=== PATIENT | female | born 1945 | race Caucasian/White ===

== ENCOUNTER 2018-03-13 12:41 | Outpatient (CLI) | payer MEDICARE ==
[2018-03-13] MEDS ORDERED: Gadobenate Dimeglumine 529 MG/1 ML (20ML VIAL) ONE (13:28)
--- NOTE | 2018-03-13 14:05 | RAD ---
LUMBAR SPINE TWO VIEWS: History: 72-year-old female with history of low back pain since January. FINDINGS: Heterogeneous bony demineralization. Mild vertical height loss of L3 vertebral body and disc prosthes is at L4-5. Generalized disc osteophytosis and facet arthrosis. IMPRESSION: Significant bone demineralization. Multilevel spondylosis. Minimal narrowing of L3 vertebral body, ag e indeterminate, although having more an older appearance radiographically. Correlate with history an d physical examination regarding to age. POS: [facility]
--- NOTE | 2018-03-13 17:06 | MRI ---
MRI LUMBAR SPINE WITH AND WITHOUT CONTRAST: HISTORY: Low back pain since mid January. Previous surgery 8-10 years ago. COMPARISON: None. TECHNIQUE: Lumbar spine MRI is performed with and without intravenous Gadolinium administration. Multisequentia l, multiplanar imaging is performed. FINDINGS: There is subtle T1 marrow signal hypointensity with associated enhancement and STIR hyperintensity in volving the L3 vertebral body, likely representing an age-indeterminate mild compression deformity. No significant retropulsion. Symmetric signal intensity of the visualized psoas muscles. There is an exophytic cyst emanating fro m the lower pole of the right kidney, measuring 1.6 cm. Coronal images demonstrate multilevel degene rative change with loss of disk space height and osteophyte formation. No significant scoliotic curv ature. With the exception of the L3 vertebral, no abnormal enhancement. No abnormal enhancement wit hin the thecal sac including the cauda equina and conus medullaris. There is abnormal signal intensity involving the left and right aspect of the sacrum compatible with bilateral insufficiency fractures. T12-L1: Conus medullaris terminates at the mid T12 level. With regards to the T12-L1 disk space, no significant central canal stenosis. Neural foramina are mildly narrowed bilaterally. L1-L2: No significant loss of disk space height. No significant central canal stenosis. Moderate b ilateral foraminal narrowing. L2-L3: No significant loss of disk space height. There is a generalized disk bulge, ligamentum flav um thickening, and facet hypertrophy that results in mild central canal stenosis. There is superior disk extrusion. Moderate right and left foraminal narrowing. L3-L4: Adequate disk hydration. No significant loss of disk space height. Broad-based disk bulge, ligamentum flavum thickening, and facet hypertrophy result in moderate central canal stenosis. Sever e right foraminal narrowing. The left neural foramen is patent. L4-L5: There appears to be a disk prosthesis. No significant central canal stenosis. Minimal narro wing of the right subarticular zone without significant obscuration of traversing right L5 nerve root . Mild to moderate right and left neural foraminal narrowing. L5-S1: Moderate loss of disk space height. Extensive bilateral facet hypertrophy with evidence of p araspinal synovial cyst. Mild central canal stenosis. Moderate bilateral foraminal narrowing. IMPRESSION: 1. Mild indeterminate compression fracture at L3. 2. Bilateral insufficiency fractures at S1. 3. Degenerative change of the lumbar spine as detailed above. There are varying degrees of signific ant central canal stenosis and foraminal narrowing. 4. Disk prosthesis at L4-L5 is noted. POS: [facility]
== END 2018-03-13 12:42 | disposition home or self-care (01) ==
LOC: TBSIIMAG 12:41
PROVIDERS: ATTEND Neurological Surgery
DX: M54.5 Low back pain (principal); M47.816 Spondylosis without myelopathy or radiculopathy, lumbar region; M48.061 Spinal stenosis, lumbar region without neurogenic claudication
CPT/HCPCS: 72100; 72158; 82565; A9579

== ENCOUNTER 2018-03-29 12:35 | Outpatient (CLI) | payer MEDICARE ==
--- NOTE | 2018-03-29 14:17 | RAD ---
LUMBAR SPINE TWO VIEWS: History: 72-year-old female with history of low back pain, M46.1 sacroiliitis. Comparison: 03-13-18 FINDINGS: Bony demineralization. Post-operative changes at L4-5. Stable appearing mild vertical height loss of L3 with some prominent hypertrophic osteophytosis. Mild levoscoliosis. IMPRESSION: Bone demineralization with mild levoscoliosis and stable mild vertical height loss of L3 vertebral ken dy. Spondylosis. Post op changes at L4-5, stable. POS: [facility]
== END 2018-03-29 12:36 | disposition home or self-care (01) ==
LOC: TBSIIMAG 12:35
PROVIDERS: ATTEND Neurological Surgery
DX: M46.1 Sacroiliitis, not elsewhere classified (principal); M41.9 Scoliosis, unspecified; M47.816 Spondylosis without myelopathy or radiculopathy, lumbar region; M51.86 Other intervertebral disc disorders, lumbar region; Z98.890 Other specified postprocedural states
CPT/HCPCS: 72100

== ENCOUNTER 2018-04-05 11:07 | Outpatient (CLI) | payer MEDICARE ==
--- NOTE | 2018-04-05 13:37 | CT ---
NONCONTRAST CT PELVIS: DATE: 04/05/2018. HISTORY: Low back pain after fall. Sacral insufficiency fracture. COMPARISON: MRI lumbar spine 03/13/2018. FINDINGS: Again noted are the bilateral sacral insufficiency fractures involving each sacral ala. There is a s uggestion of mild callus formation anterior to the region of the sacral insufficiency fractures. No additional fracture is seen involving the pelvis. 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 Degenerative changes are seen at the pubic sy mphysis. Postsurgical changes as well as degenerative changes are seen involving the lower lumbar spine. No joint effusion is seen involving the hips bilaterally. There is mild atrophy of the gluteal muscu lature which is a symmetric finding. Colonic diverticulosis is present. The urinary bladder and uterus demonstrate a grossly normal nonenh anced CT appearance. IMPRESSION: 1. Bilateral sacral insufficiency fractures which were also visualized on prior MRI examination on 1 05/13/2017. No additional fracture is visualized involving the pelvis. 2. Degenerative changes as described above. 3. Postoperative and degenerative changes of the lumbar spine. 4. Colonic diverticulosis. POS: [facility]
== END 2018-04-05 11:08 | disposition home or self-care (01) ==
LOC: CT 11:07
PROVIDERS: ATTEND Specialist
DX: M84.48XA Pathological fracture, other site, initial encounter for fracture (principal); M47.818 Spondylosis without myelopathy or radiculopathy, sacral and sacrococcygeal region; K57.30 Diverticulosis of large intestine without perforation or abscess without bleeding; Z98.890 Other specified postprocedural states
CPT/HCPCS: 72192

== ENCOUNTER 2019-03-22 08:32 | Outpatient (CLI) | payer MEDICARE ==
--- NOTE | 2019-03-22 09:35 | RAD ---
PA AND LATERAL VIEWS CHEST: Date: 03/22/19 HISTORY: Dyspnea. FINDINGS/IMPRESSION: Comparison made with exam of 02/26/19. The heart size is normal. The aorta is tortuous. Plate of linear atelectasis versus scarring is seen in the left lung base. No focal areas of consolidation, pneumothoraces, escobar pulmonary edema, or ple ural effusions are noted. POS: [facility]
== END 2019-03-22 08:33 | disposition home or self-care (01) ==
LOC: RAD 08:32
PROVIDERS: ATTEND Internal Medicine Critical Care Medicine
DX: R06.00 Dyspnea, unspecified (principal)
CPT/HCPCS: 71046

== ENCOUNTER 2024-04-02 21:30 | Inpatient (IN) | payer MEDICARE ==
[~2024-04-02 21:30] MED LIST: Iopamidol-370 76% 500 ML MDV (1 ML CHARGE) ONE
[2024-04-02 22:57] LABS: #Basophils 0.03 10x3/uL (0.0-0.2); #Eosinophils Less than 0.03 10x3/uL (0.0-0.7); %Basophils 0.2 % (0.0-1.0); %Eosinophils 0.1 % (0.0-10.0); %Lymphocytes 2.6 % (21.0-51.0); %Monocytes 1.6 % (0.0-10.0); %Neutrophils 94.9 % (42.0-75.0); Hematocrit 42.9 % (36.0-47.0); Hemoglobin 14.1 g/dL (12.0-16.0); Mean Corpuscular HGB CONC 32.9 g/dL (32.0-36.0); Mean Corpuscular Hemoglobin 30.1 pg (27.0-31.0); Mean Corpuscular Volume 91.5 fL (78.0-98.0); Mean Platelet Volume 9.8 fL (7.4-10.4); Platelet Count 290 10x3/uL (130-400); RBC Distribution Width 13.6 % (11.5-14.5); Red Blood Cell (RBC) Count 4.69 mill/uL (4.20-5.40)
[2024-04-02 23:17] LABS: ALT (SGPT) 33 U/L (8-55); AST (SGOT) 23 U/L (5-34); Albumin 2.8 g/dL (3.4-4.8); Alkaline Phosphatase 61 U/L (40-110); Anion Gap 16 mmol/L (10-20); BUN (Urea Nitrogen) 16 mg/dL (9.8-20.1); Bilirubin, Total 0.4 mg/dL (0.2-1.2); Calc. Creatinine Clearance 0 mL/min (70-130); Calcium 8.3 mg/dL (7.8-10.44); Carbon Dioxide 19 mmol/L (23-31); Chloride 102 mmol/L (98-107); Estimated GFR 70; Globulin 4.3 g/dL (2.4-3.5); Glucose 367 mg/dL (83-110); Potassium 4.6 mmol/L (3.5-5.1); Protein, Total 7.1 g/dL (5.8-8.1); Sodium 132 mmol/L (136-145)
[2024-04-02 23:22] LABS: Troponin I 0.059 ng/mL (< 0.028)
[2024-04-02] MEDS ORDERED: Furosemide 40 MG (4 mL) VIAL ONE (23:32)
[2024-04-03 00:12] LABS: Bilirubin Negative (Negative); Blood, Urine 2+ (Negative); CAUTI Indications for Culture Alt mental st,lethar; Clarity Turbid (Clear); Glucose, Urine (Dipstick) Greater than 1000 mg/dL (Negative); Ketone, Urine Negative (Negative); Leukocyte 250 Leu/uL (Negative); Nitrite Negative (Negative); Protein, Urine (Dipstick) 100 mg/dL (Neg-Trace); RBC/HPF 21-50 HPF (0-3); Specific Gravity, Urine 1.027 (1.002-1.036); Squamous Epithelial 0-3 HPF (0-3); Urobilinogen Normal mg/dL (Less than 2); WBC/HPF Greater than 50 HPF (0-3); pH, Urine 5.5 (5.0-9.0)
[2024-04-03 00:25] LABS: Bacteria/HPF 1+ HPF (None Seen)
[2024-04-03 00:26] LABS: Urine Culture Reflex Yes Yes
[2024-04-03] MEDS ORDERED: Cefepime 2 GM VIAL ONE (01:25)
[2024-04-03] MEDS ORDERED: Sodium Chloride 0.9% 100 ML ONE (01:25)
[2024-04-03] MEDS ORDERED: Heparin 10,000 UNITS/ 10 ML VIAL SLOW IVP SCH (02:45)
[2024-04-03] MEDS ORDERED: Heparin 25,000 units/D5W 500 ML IVPB SCH (02:45)
[2024-04-03] MEDS ORDERED: Heparin 5,000 UNITS/ML VIAL ONE (02:49)
[2024-04-03] MEDS ORDERED: Heparin 25,000 units/D5W 500 ML ONE (02:50)
[2024-04-03 02:57] LABS: INR-International Normal Ratio 1.1; Prothrombin Time 14.5 sec (12.0-14.7)
[2024-04-03 02:58] LABS: PTT 36.8 sec (22.9-36.1)
[2024-04-03 03:01] LABS: Hematocrit 43.9 % (36.0-47.0); Hemoglobin 14.4 g/dL (12.0-16.0); Platelet Count 288 10x3/uL (130-400)
[2024-04-03] MEDS ORDERED: Dextrose 50% Abboject 50 ML SYRINGE SLOW IVP PRN (03:26)
[2024-04-03] MEDS ORDERED: Insulin Lispro 100 UNIT/ML 10 ML VIAL SC PRN (03:26)
[2024-04-03] MEDS ORDERED: Dextrose 5% in Water 1,000 ML IV PRN (03:26)
[2024-04-03] MEDS ORDERED: Glucagon 1 MG/ML KIT IM PRN (03:26)
[2024-04-03] MEDS ORDERED: Electrolyte Replacement Protocol 1 EACH FS PRN (05:02)
[2024-04-03] MEDS: Insulin Lispro 100 UNIT/ML 10 ML VIAL SC PRN (06:06)
[2024-04-03] MEDS: Vancomycin (BATCH) 2 GM in Premix 1 BAG IVPB SCH (06:07)
[2024-04-03 07:23] LABS: #Basophils Less than 0.03 10x3/uL (0.0-0.2); #Eosinophils Less than 0.03 10x3/uL (0.0-0.7); %Basophils 0.2 % (0.0-1.0); %Lymphocytes 4.7 % (21.0-51.0); %Monocytes 8.5 % (0.0-10.0); %Neutrophils 85.6 % (42.0-75.0); Hematocrit 41.9 % (36.0-47.0); Hemoglobin 13.7 g/dL (12.0-16.0); Mean Corpuscular HGB CONC 32.7 g/dL (32.0-36.0); Mean Corpuscular Volume 91.7 fL (78.0-98.0); Mean Platelet Volume 9.6 fL (7.4-10.4); Platelet Count 277 10x3/uL (130-400); RBC Distribution Width 13.4 % (11.5-14.5); Red Blood Cell (RBC) Count 4.57 mill/uL (4.20-5.40)
[2024-04-03 07:36] LABS: ALT (SGPT) 33 U/L (8-55); AST (SGOT) 17 U/L (5-34); Albumin 2.8 g/dL (3.4-4.8); Alkaline Phosphatase 58 U/L (40-110); Anion Gap 16 mmol/L (10-20); BUN (Urea Nitrogen) 16 mg/dL (9.8-20.1); Bilirubin, Total 0.4 mg/dL (0.2-1.2); Calc. Creatinine Clearance 100 mL/min (70-130); Calcium 8.5 mg/dL (7.8-10.44); Carbon Dioxide 23 mmol/L (23-31); Chloride 101 mmol/L (98-107); Estimated GFR 73; Globulin 4.3 g/dL (2.4-3.5); Glucose 337 mg/dL (83-110); Potassium 4.4 mmol/L (3.5-5.1); Protein, Total 7.1 g/dL (5.8-8.1); Sodium 136 mmol/L (136-145)
[2024-04-03 07:39] LABS: Troponin I 0.048 ng/mL (< 0.028)
[2024-04-03] MEDS: Famotidine/PF 20 mg/2ml Vial SLOW IVP SCH (08:30)
[2024-04-03] MEDS: Lactated Ringer's 1,000 ML IV SCH (08:31)
[2024-04-03 09:55] LABS: INR-International Normal Ratio 1.4; Prothrombin Time 17.1 sec (12.0-14.7)
[2024-04-03 10:40] LABS: PTT Greater than 250.0 sec (22.9-36.1)
[2024-04-03] MEDS ORDERED: cefTRIAXone\\ROCEPHIN 1 GM in Sodium Chloride 0.9% 100 ML IVPB SCH (13:00)
[2024-04-03] MEDS ORDERED: Cefepime 2 GM in Sodium Chloride 0.9% 100 ML IVPB SCH (13:00)
[2024-04-03] MEDS ORDERED: Vancomycin 1.25 GM in Sodium Chloride 0.9% 250 ML 250 ML IVPB SCH (14:00)
[2024-04-03] MEDS ORDERED: Vancomycin HCl 750 MG in Sodium Chloride 0.9% 250 ML 250 ML IVPB SCH (14:00)
[2024-04-03] MEDS ORDERED: Electrolyte Replacement Protocol FS PRN (14:00)
[2024-04-03] MEDS: Enoxaparin 120 MG/0.8 ML SYRINGE SC SCH (14:01)
[2024-04-03] MEDS: Ipratropium/Albuterol 3 ML NEB NEB SCH (15:16)
[2024-04-03] MEDS ORDERED: VANCOMYCIN 1.25 GM/250 ML BAG 1.25 GM in Premix 1 BAG IVPB SCH (16:30)
[2024-04-03] MEDS ORDERED: Pantoprazole 40 MG VIAL IVP SCH (21:45)
[2024-04-04 04:59] LABS: #Basophils 0.04 10x3/uL (0.0-0.2); %Basophils 0.4 % (0.0-1.0); %Eosinophils 0.5 % (0.0-10.0); %Lymphocytes 6.8 % (21.0-51.0); %Monocytes 13.5 % (0.0-10.0); %Neutrophils 78.2 % (42.0-75.0); Hematocrit 38.8 % (36.0-47.0); Hemoglobin 12.8 g/dL (12.0-16.0); Mean Corpuscular Hemoglobin 30.5 pg (27.0-31.0); Mean Corpuscular Volume 92.6 fL (78.0-98.0); Mean Platelet Volume 10.2 fL (7.4-10.4); Platelet Count 308 10x3/uL (130-400); RBC Distribution Width 13.2 % (11.5-14.5); Red Blood Cell (RBC) Count 4.19 mill/uL (4.20-5.40)
[2024-04-04 05:32] LABS: ALT (SGPT) 32 U/L (8-55); AST (SGOT) 24 U/L (5-34); Albumin 2.8 g/dL (3.4-4.8); Alkaline Phosphatase 57 U/L (40-110); Anion Gap 16 mmol/L (10-20); BUN (Urea Nitrogen) 12 mg/dL (9.8-20.1); Bilirubin, Total 0.3 mg/dL (0.2-1.2); Calc. Creatinine Clearance 125 mL/min (70-130); Calcium 8.5 mg/dL (7.8-10.44); Carbon Dioxide 23 mmol/L (23-31); Chloride 103 mmol/L (98-107); Estimated GFR 90; Globulin 3.9 g/dL (2.4-3.5); Glucose 155 mg/dL (83-110); Potassium 3.5 mmol/L (3.5-5.1); Protein, Total 6.7 g/dL (5.8-8.1); Sodium 138 mmol/L (136-145)
[2024-04-04] MEDS: Acetaminophen 650 MG Suppository PR PRN (06:06)
[2024-04-04] MEDS: Famotidine 20 MG TAB PO SCH (08:48)
[2024-04-04] MEDS: Potassium Chloride 20 MEQ in Premix 1 BAG IVPB SCH (08:49)
[2024-04-04] MEDS ORDERED: Pantoprazole 40 MG VIAL IVP SCH (09:00)
[2024-04-04] MEDS: cefTRIAXone\\ROCEPHIN 2 GM in Sodium Chloride 0.9% 100 ML IVPB SCH (09:00)
[2024-04-04] MEDS ORDERED: Ipratropium/Albuterol 3 ML NEB NEB PRN (09:16)
[2024-04-04 09:52] LABS: Magnesium 2.2 mg/dL (1.6-2.6); Phosphorus 2.4 mg/dL (2.3-4.7)
[2024-04-04] MEDS: methylPREDNISolone Sod Succ 40 MG VIAL IVP SCH (11:28)
[2024-04-04 17:33] LABS: Bacteria/HPF 3+ HPF (None Seen); Bilirubin Negative (Negative); Blood, Urine 2+ (Negative); Clarity Turbid (Clear); Glucose, Urine (Dipstick) Normal (Negative); Ketone, Urine Negative (Negative); Leukocyte 500 Leu/uL (Negative); Nitrite Negative (Negative); Protein, Urine (Dipstick) 20 mg/dL (Neg-Trace); Specific Gravity, Urine 1.003 (1.002-1.036); Squamous Epithelial 0-3 HPF (0-3); Urobilinogen Normal mg/dL (Less than 2); pH, Urine 5.5 (5.0-9.0)
[2024-04-04 20:59] LABS: Potassium 4.7 mmol/L (3.5-5.1)
[2024-04-04] MEDS ORDERED: [UNRECOGNIZED DRUG - OTHER] EA EYE SCH (21:00)
[2024-04-04] MEDS: Ketotifen 0.035% Ophth Soln 5 ml Bottle EA EYE SCH (21:18)
[2024-04-05 04:02] LABS: Hemoglobin 12.7 g/dL (12.0-16.0); Mean Corpuscular HGB CONC 31.8 g/dL (32.0-36.0); Mean Corpuscular Hemoglobin 29.7 pg (27.0-31.0); Mean Corpuscular Volume 93.5 fL (78.0-98.0); Mean Platelet Volume 9.9 fL (7.4-10.4); Platelet Count 290 10x3/uL (130-400); RBC Distribution Width 13.4 % (11.5-14.5); Red Blood Cell (RBC) Count 4.28 mill/uL (4.20-5.40)
[2024-04-05 04:23] LABS: ALT (SGPT) 33 U/L (8-55); AST (SGOT) 21 U/L (5-34); Albumin 2.9 g/dL (3.4-4.8); Alkaline Phosphatase 53 U/L (40-110); Anion Gap 12 mmol/L (10-20); BUN (Urea Nitrogen) 10 mg/dL (9.8-20.1); Bilirubin, Total 0.3 mg/dL (0.2-1.2); Calc. Creatinine Clearance 129 mL/min (70-130); Calcium 8.7 mg/dL (7.8-10.44); Carbon Dioxide 27 mmol/L (23-31); Chloride 104 mmol/L (98-107); Estimated GFR 90; Globulin 3.8 g/dL (2.4-3.5); Glucose 144 mg/dL (83-110); Potassium 4.3 mmol/L (3.5-5.1); Protein, Total 6.7 g/dL (5.8-8.1); Sodium 139 mmol/L (136-145)
[2024-04-05 04:47] LABS: Band 9 % (5-11); Lymphocytes 13 % (21-51); Monocytes 8 % (0-10); Neutrophil 68 % (42-75); Platelet Adequacy Comment Platelets Normal; Reactive Lymphocytes 2 % (0-10)
[2024-04-05] MEDS: Apixaban 5 MG TAB PO SCH ×2 (05:29→09:18)
[2024-04-05] MEDS: Donepezil HCl 10 MG TAB PO SCH (05:30)
[2024-04-05] MEDS: busPIRone HCl 5 MG TAB PO SCH (05:30)
[2024-04-05] MEDS: Melatonin 3 MG TAB PO SCH (05:31)
[2024-04-05] MEDS: Famotidine 20 MG TAB PO SCH (05:31)
[2024-04-05] MEDS ORDERED: methylPREDNISolone Sod Succ 40 MG VIAL IVP SCH (09:00)
[2024-04-05] MEDS: Sertraline 25 MG TAB PO SCH (09:19)
[2024-04-05] MEDS: Valsartan 80 MG TAB PO SCH (09:21)
[2024-04-05] MEDS: Cyanocobalamin (Vitamin B-12) 1,000 MCG TAB PO SCH (09:21)
[2024-04-05] MEDS: Loratadine 10 MG TAB PO SCH (09:21)
[2024-04-05] MEDS: methylPREDNISolone Sod Succ 40 MG VIAL IVP SCH (09:21)
[2024-04-05] MEDS: Spironolactone 25 MG TAB PO SCH (09:21)
[2024-04-05] MEDS: FLU (Fluad Triv) TS24-25 (65UP)/MF59C/PF 45 MCG/0.5 ML Syringe IM ONE (09:37)
[2024-04-05] MEDS: cefTRIAXone\\ROCEPHIN 1 GM in Sodium Chloride 0.9% 100 ML IVPB SCH (09:38)
[2024-04-05] MEDS: PHOS-NAK 1 PKT PACK PO SCH ×2 (10:45→10:46)
[2024-04-05] MEDS: Ipratropium/Albuterol 3 ML NEB NEB SCH (14:34)
[2024-04-06 05:00] LABS: #Basophils 0.03 10x3/uL (0.0-0.2); %Basophils 0.4 % (0.0-1.0); %Eosinophils 1.4 % (0.0-10.0); %Lymphocytes 17.1 % (21.0-51.0); %Monocytes 14.9 % (0.0-10.0); %Neutrophils 65.6 % (42.0-75.0); ALT (SGPT) 42 U/L (8-55); AST (SGOT) 29 U/L (5-34); Albumin 2.8 g/dL (3.4-4.8); Alkaline Phosphatase 49 U/L (40-110); Anion Gap 11 mmol/L (10-20); BUN (Urea Nitrogen) 10 mg/dL (9.8-20.1); Bilirubin, Total 0.2 mg/dL (0.2-1.2); Calc. Creatinine Clearance 131 mL/min (70-130); Calcium 8.6 mg/dL (7.8-10.44); Carbon Dioxide 30 mmol/L (23-31); Chloride 104 mmol/L (98-107); Estimated GFR 91; Globulin 3.7 g/dL (2.4-3.5); Glucose 106 mg/dL (83-110); Hematocrit 39.5 % (36.0-47.0); Hemoglobin 12.7 g/dL (12.0-16.0); Mean Corpuscular HGB CONC 32.2 g/dL (32.0-36.0); Mean Corpuscular Volume 93.2 fL (78.0-98.0); Mean Platelet Volume 10.2 fL (7.4-10.4); Platelet Count 282 10x3/uL (130-400); Potassium 4.3 mmol/L (3.5-5.1); Protein, Total 6.5 g/dL (5.8-8.1); RBC Distribution Width 13.3 % (11.5-14.5); Red Blood Cell (RBC) Count 4.24 mill/uL (4.20-5.40); Sodium 141 mmol/L (136-145)
[2024-04-06] MEDS: predniSONE 20 MG TAB PO SCH (08:42)
[2024-04-07 03:44] LABS: #Basophils 0.05 10x3/uL (0.0-0.2); %Basophils 0.5 % (0.0-1.0); %Eosinophils 1.2 % (0.0-10.0); %Lymphocytes 19.6 % (21.0-51.0); %Monocytes 11.5 % (0.0-10.0); %Neutrophils 66.5 % (42.0-75.0); Hematocrit 40.8 % (36.0-47.0); Hemoglobin 13.1 g/dL (12.0-16.0); Mean Corpuscular HGB CONC 32.1 g/dL (32.0-36.0); Mean Corpuscular Hemoglobin 30.8 pg (27.0-31.0); Mean Corpuscular Volume 95.8 fL (78.0-98.0); Mean Platelet Volume 9.4 fL (7.4-10.4); Platelet Count 330 10x3/uL (130-400); RBC Distribution Width 13.2 % (11.5-14.5); Red Blood Cell (RBC) Count 4.26 mill/uL (4.20-5.40)
[2024-04-07 04:00] LABS: ALT (SGPT) 61 U/L (8-55); AST (SGOT) 39 U/L (5-34); Albumin 2.9 g/dL (3.4-4.8); Alkaline Phosphatase 54 U/L (40-110); Anion Gap 13 mmol/L (10-20); BUN (Urea Nitrogen) 13 mg/dL (9.8-20.1); Bilirubin, Total 0.3 mg/dL (0.2-1.2); Calc. Creatinine Clearance 130 mL/min (70-130); Carbon Dioxide 29 mmol/L (23-31); Chloride 103 mmol/L (98-107); Estimated GFR 91; Globulin 3.8 g/dL (2.4-3.5); Glucose 105 mg/dL (83-110); Potassium 3.9 mmol/L (3.5-5.1); Protein, Total 6.7 g/dL (5.8-8.1); Sodium 141 mmol/L (136-145)
[2024-04-07] MEDS ORDERED: Ampicillin/Sulbactam 3 GM in Sodium Chloride 0.9% 100 ML IVPB SCH (10:30)
[2024-04-07] MEDS: Ipratropium/Albuterol 3 ML NEB NEB SCH (11:19)
[2024-04-07] MEDS: LevoFLOXacin 750 mg/D5W 750 MG in Premix 1 BAG IVPB SCH (15:22)
[2024-04-08 04:41] LABS: #Basophils 0.04 10x3/uL (0.0-0.2); %Basophils 0.4 % (0.0-1.0); %Eosinophils 0.5 % (0.0-10.0); %Lymphocytes 17.7 % (21.0-51.0); %Monocytes 8.7 % (0.0-10.0); %Neutrophils 71.9 % (42.0-75.0); Hematocrit 39.1 % (36.0-47.0); Hemoglobin 12.6 g/dL (12.0-16.0); Mean Corpuscular HGB CONC 32.2 g/dL (32.0-36.0); Mean Corpuscular Volume 93.1 fL (78.0-98.0); Mean Platelet Volume 9.6 fL (7.4-10.4); Platelet Count 383 10x3/uL (130-400); RBC Distribution Width 13.4 % (11.5-14.5)
[2024-04-08 05:02] LABS: ALT (SGPT) 83 U/L (8-55); AST (SGOT) 49 U/L (5-34); Alkaline Phosphatase 53 U/L (40-110); Anion Gap 15 mmol/L (10-20); BUN (Urea Nitrogen) 12 mg/dL (9.8-20.1); Bilirubin, Total 0.3 mg/dL (0.2-1.2); Calc. Creatinine Clearance 126 mL/min (70-130); Calcium 8.9 mg/dL (7.8-10.44); Carbon Dioxide 28 mmol/L (23-31); Chloride 102 mmol/L (98-107); Estimated GFR 90; Globulin 3.5 g/dL (2.4-3.5); Glucose 111 mg/dL (83-110); Potassium 3.8 mmol/L (3.5-5.1); Protein, Total 6.5 g/dL (5.8-8.1); Sodium 141 mmol/L (136-145)
[2024-04-08 05:50] VITALS: BMI 45.1
[2024-04-08] MEDS ORDERED: FLUCONAZOLE IVPB SCH (10:15)
[2024-04-08] MEDS ORDERED: NACL ISO OSM IVPB SCH (10:15)
[2024-04-08] MEDS ORDERED: Fluconazole 100 MG TAB PO SCH (12:00)
[2024-04-08 18:23] VITALS: BP 167/93; TEMP 98.1
[2024-04-11] MEDS ORDERED: Apixaban 5 MG TAB PO SCH (21:00)
[2024-04-12] MEDS ORDERED: Apixaban 5 MG TAB PO SCH (09:00)
== END 2024-04-08 18:23 | DRG 871 ==
LOC: ERS 21:30 → CCU 04-03 03:16 → PCU 04-04 05:18 → UNDODISIN 04-05 15:09
PROVIDERS: ADMIT Family Medicine; ATTEND Family Medicine
DX: A41.9 Sepsis, unspecified organism (principal); B37.49 Other urogenital candidiasis; I26.99 Other pulmonary embolism without acute cor pulmonale; J96.01 Acute respiratory failure with hypoxia; I50.33 Acute on chronic diastolic (congestive) heart failure; A00.9 Cholera, unspecified; I13.0 Hypertensive heart and chronic kidney disease with heart failure and stage 1 through stage 4 chronic kidney disease, or unspecified chronic kidney disease; I82.402 Acute embolism and thrombosis of unspecified deep veins of left lower extremity; E78.5 Hyperlipidemia, unspecified; N18.9 Chronic kidney disease, unspecified; G30.9 Alzheimer's disease, unspecified; J42 Unspecified chronic bronchitis; F02.C0 Dementia in other diseases classified elsewhere, severe, without behavioral disturbance, psychotic disturbance, mood disturbance, and anxiety; E83.39 Other disorders of phosphorus metabolism; Z91.041 Radiographic dye allergy status; Z99.89 Dependence on other enabling machines and devices; Z74.01 Bed confinement status; Z86.73 Personal history of transient ischemic attack (TIA), and cerebral infarction without residual deficits; Z90.49 Acquired absence of other specified parts of digestive tract; Z51.5 Encounter for palliative care
CPT/HCPCS: 36415; 36416; 51702; 71045; 71275; 76999; 80053; 81001; 83605; 83735; 83880; 84100; 84484; 85014; 85018; 85025; 85049; 85379; 85610; 85730; 87040; 87077; 87086; 87428; 93005; 93306; 93970; 94640; 94660; 96361; 96365; 96366; 96368; 96375; J0692; J0696; J1644; J1650; J1815; J1940; J1956; J2919; J3370; J3480; J3490; J7120; J7512; J7620; Q9967

== ENCOUNTER 2024-12-24 15:41 | Inpatient (IN) | payer MEDICARE ==
[2024-12-24] MEDS ORDERED: Ondansetron PF 4 MG/2 ML Vial IVP PRN (17:38)
[2024-12-24] MEDS ORDERED: Acetaminophen 500 MG TAB PO PRN (17:38)
[2024-12-24] MEDS ORDERED: Communication Order-Pharmacy FS PRN (17:38)
[2024-12-24] MEDS: cefTRIAXone\\ROCEPHIN 2 GM in Sodium Chloride 0.9% 100 ML IVPB SCH (18:04)
[2024-12-24] MEDS: Mometasone 200 MCG/Formoterol 5 MCG 120 PUFF INHALER INH SCH (18:32)
[2024-12-24] MEDS: Albumin 25% 25 GM (100 mL) BOT IVPB SCH (19:34)
[2024-12-24 20:07] LABS: Hematocrit 40.6 % (36.0-47.0); Hemoglobin 11.2 g/dL (12.0-16.0); Mean Corpuscular Hemoglobin 29.9 pg (27.0-31.0); Mean Corpuscular Volume 108.3 fL (78.0-98.0); Platelet Count 279 10x3/uL (130-400); Red Blood Cell (RBC) Count 3.75 mill/uL (4.20-5.40); White Blood Cell (WBC) Count 25.34 10x3/uL (4.8-10.8)
[2024-12-24 20:35] LABS: Anisocytosis SLIGHT = 6-15 cells HPF (0-5); Burr Cells MODERATE= 6-15 cells HPF (0-1); Macrocytosis SLIGHT = 6-15 cells HPF (0-5); Ovalocytes SLIGHT = 2-5 cells HPF (0-1); Platelet Adequacy Comment Platelets Normal; Polychromasia SLIGHT = 2-3 cells HPF (0-2); Smudge Cells 2.0 %; Toxic Granulation SLIGHT
[2024-12-24 21:02] LABS: ALT (SGPT) 29 U/L (Less than 34); AST (SGOT) 30 U/L (11-34); Albumin 2.6 g/dL (3.1-4.5); Alkaline Phosphatase 64 U/L (40-110); Anion Gap 17 mmol/L (10-20); BUN (Urea Nitrogen) 74 mg/dL (9.8-20.1); Bilirubin, Total 0.4 mg/dL (0.3-1.2); Calc. Creatinine Clearance 17 mL/min (70-130); Calcium 7.5 mg/dL (7.8-10.44); Carbon Dioxide 12 mmol/L (23-31); Chloride 142 mmol/L (98-107); Globulin 3.1 g/dL (2.4-3.5); Glucose 159 mg/dL (83-110); Potassium 3.8 mmol/L (3.5-5.1); Sodium 167 mmol/L (136-145)
[2024-12-24] MEDS ORDERED: Vancomycin 1.5 GM / NS 500ML VIAL-2-BAG IVPB SCH (21:30)
[2024-12-24] MEDS ORDERED: Vancomycin Dose by Levels Sliding Scale (Wt 71-99) FS SCH (22:15)
[2024-12-24 23:38] VITALS: BMI 47.5
[2024-12-25] MEDS: Albumin 25% 25 GM (100 mL) BOT IVPB SCH (00:38)
[2024-12-25 04:45] LABS: Hematocrit 34.8 % (36.0-47.0); Hemoglobin 9.8 g/dL (12.0-16.0); Mean Corpuscular Hemoglobin 29.0 pg (27.0-31.0); Mean Corpuscular Volume 103.0 fL (78.0-98.0); Platelet Count 257 10x3/uL (130-400); Red Blood Cell (RBC) Count 3.38 mill/uL (4.20-5.40); White Blood Cell (WBC) Count 22.76 10x3/uL (4.8-10.8)
[2024-12-25 06:08] LABS: ALT (SGPT) 25 U/L (Less than 34); AST (SGOT) 24 U/L (11-34); Albumin 2.7 g/dL (3.1-4.5); Alkaline Phosphatase 81 U/L (40-110); Anion Gap 17 mmol/L (10-20); BUN (Urea Nitrogen) 77 mg/dL (9.8-20.1); Bilirubin, Total 0.4 mg/dL (0.3-1.2); Calc. Creatinine Clearance 21 mL/min (70-130); Calcium 7.7 mg/dL (7.8-10.44); Carbon Dioxide 10 mmol/L (23-31); Chloride 140 mmol/L (98-107); Globulin 3.0 g/dL (2.4-3.5); Glucose 163 mg/dL (83-110); Potassium 3.4 mmol/L (3.5-5.1); Sodium 164 mmol/L (136-145)
[2024-12-25 06:48] LABS: Burr Cells MODERATE= 6-15 cells HPF (0-1); Macrocytosis SLIGHT = 6-15 cells HPF (0-5); Platelet Adequacy Comment Platelets Normal; Polychromasia SLIGHT = 2-3 cells HPF (0-2); Smudge Cells 5.0 %
[2024-12-25] MEDS ORDERED: Vancomycin 1 GM in Sodium Chloride 0.9% 250 ML 300 ML IVPB SCH (09:00)
[2024-12-25] MEDS: Famotidine/PF 20 mg/2ml Vial SLOW IVP SCH (09:37)
[2024-12-25 10:23] LABS: Vancomycin, Random 11.3 ug/mL (See Comment)
[2024-12-25] MEDS ORDERED: Vancomycin Dose by Levels Sliding Scale (Wt > 99) FS SCH (11:45)
[2024-12-25] MEDS: Vancomycin 1 GM in Premix 1 BAG IVPB SCH (12:49)
[2024-12-25 15:14] VITALS: BP 125/71; TEMP 98.9
== END 2024-12-25 20:57 | disposition hospice, inpatient (51) | DRG 871 ==
LOC: 2SE 16:28
PROVIDERS: ADMIT Family Medicine; ATTEND Hospitalist
PROC: 3E03329 Introduction of Other Anti-infective into Peripheral Vein, Percutaneous Approach (ICD-10-PCS; principal; 2024-12-24)
PROC: 30233J1 Transfusion of Nonautologous Serum Albumin into Peripheral Vein, Percutaneous Approach (ICD-10-PCS; principal; 2024-12-24)
DX: A41.9 Sepsis, unspecified organism (principal); J96.01 Acute respiratory failure with hypoxia; R53.2 Functional quadriplegia; I50.32 Chronic diastolic (congestive) heart failure; N39.0 Urinary tract infection, site not specified; N17.9 Acute kidney failure, unspecified; E87.0 Hyperosmolality and hypernatremia; E87.20 Acidosis, unspecified; Z66 Do not resuscitate; Z51.5 Encounter for palliative care; G30.9 Alzheimer's disease, unspecified; F02.C0 Dementia in other diseases classified elsewhere, severe, without behavioral disturbance, psychotic disturbance, mood disturbance, and anxiety; I11.0 Hypertensive heart disease with heart failure; E78.5 Hyperlipidemia, unspecified; E86.0 Dehydration; Z79.01 Long term (current) use of anticoagulants; Z79.899 Other long term (current) drug therapy; Z74.01 Bed confinement status; Z88.8 Allergy status to other drugs, medicaments and biological substances; Z88.1 Allergy status to other antibiotic agents; Z86.711 Personal history of pulmonary embolism; M81.0 Age-related osteoporosis without current pathological fracture; F41.9 Anxiety disorder, unspecified; Z90.49 Acquired absence of other specified parts of digestive tract; Z98.890 Other specified postprocedural states; Z88.6 Allergy status to analgesic agent; Z88.5 Allergy status to narcotic agent; Z91.040 Latex allergy status; M19.90 Unspecified osteoarthritis, unspecified site; L89.899 Pressure ulcer of other site, unspecified stage; L08.9 Local infection of the skin and subcutaneous tissue, unspecified
CPT/HCPCS: 36415; 36416; 71045; 80053; 80202; 83605; 83880; 85025; 94640; 97139; J0696; J1308; J2060; J2270; J3373; J7070; J7620; P9047